=== PATIENT | male | born 1995 | race Caucasian/White ===

== ENCOUNTER 2020-12-05 15:13 | Emergency (ER) | payer SELFPAY ==
[~2020-12-05 15:13] MED LIST: LODINE CAP 300300 MG PO; POLYSPORIN OP3.5 GM TOP
[2020-12-05] MEDS ORDERED: IBU600 MG PO (17:34)
[2020-12-05] MEDS ORDERED: ROBAXIN-750750 MG PO (17:34)
== END 2020-12-05 17:55 | disposition home or self-care (01) ==
LOC: ER1 15:13
DX: M54.5 Low back pain (principal); F17.210 Nicotine dependence, cigarettes, uncomplicated
CPT/HCPCS: 81001; 96372; 99283; J1885; J2360

== ENCOUNTER 2021-02-23 17:09 | Emergency (ER) | payer SELFPAY ==
[~2021-02-23 17:09] MED LIST changes: +IBU600 MG PO; +ROBAXIN-750750 MG PO
[2021-02-23] MEDS ORDERED: LODINE CAP 300300 MG PO (18:36)
[2021-02-23] MEDS ORDERED: ZOFRAN ODT 4 MG4 MG PO (18:36)
[2021-02-23] MEDS ORDERED: HYDROCODON-ACE1 EAC4 PO (18:41)
== END 2021-02-23 18:50 | disposition home or self-care (01) ==
LOC: ER1 17:09
DX: S62.316A Displaced fracture of base of fifth metacarpal bone, right hand, initial encounter for closed fracture (principal); S60.221A Contusion of right hand, initial encounter; F17.210 Nicotine dependence, cigarettes, uncomplicated; W22.8XXA Striking against or struck by other objects, initial encounter
CPT/HCPCS: 29125; 73130; 99283

== ENCOUNTER 2021-08-11 10:20 | Emergency (ER) | payer SELFPAY ==
[~2021-08-11 10:20] MED LIST changes: +HYDROCODON-ACE1 EAC4 PO; +ZOFRAN ODT 4 MG4 MG PO
[2021-08-11 12:16] LABS: HEMOGLOBIN 15.3 gm/dl (14.0-17.5); RED BLOOD COUNT 4.92 M/UL (4.20-5.50)
[2021-08-11 12:39] LABS: BUN/CREATININE RATIO 10 (0-10)
[2021-08-11] MEDS ORDERED: CYCLOBENZAPRINE10 MG PO (14:44)
[2021-08-11] MEDS ORDERED: NAPROSYN500 MG PO (14:44)
== END 2021-08-11 14:50 | disposition home or self-care (01) ==
LOC: ER1 10:20
PROVIDERS: Physician Assistant
DX: S20.211A Contusion of right front wall of thorax, initial encounter (principal); F17.200 Nicotine dependence, unspecified, uncomplicated; V86.99XA Unspecified occupant of other special all-terrain or other off-road motor vehicle injured in nontraffic accident, initial encounter
CPT/HCPCS: 71260; 80053; 85025; 99284; J7030; Q9967

== ENCOUNTER 2022-03-03 12:16 | Emergency (ER) | payer SELFPAY ==
[~2022-03-03 12:16] MED LIST changes: +CYCLOBENZAPRINE10 MG PO; +NAPROSYN500 MG PO
[2022-03-03 12:52] LABS: HEMOGLOBIN 14.5 gm/dl (14.0-17.5); RED BLOOD COUNT 4.5 M/UL (4.20-5.50); WHITE BLOOD COUNT 17.9 K/UL (4.5-11.0)
[2022-03-03 13:08] LABS: BUN/CREATININE RATIO 12 (0-10)
== END 2022-03-04 06:46 | disposition home or self-care (01) ==
LOC: ER1 12:16
PROVIDERS: Physician Assistant; Physician Assistant Medical
DX: L55.0 Sunburn of first degree (principal); R44.3 Hallucinations, unspecified
CPT/HCPCS: 70360; 71045; 80053; 80307; 81001; 82550; 82553; 83874; 84484; 85025; 99285; G0480

== ENCOUNTER 2022-03-28 17:17 | Emergency (ER) | payer SELFPAY ==
[2022-03-28] MEDS ORDERED: FLOXIN 0.3% OTIC5 ML EARLF (20:12)
== END 2022-03-28 20:25 | disposition home or self-care (01) ==
LOC: ER1 17:17
DX: H60.92 Unspecified otitis externa, left ear (principal); H60.332 Swimmer's ear, left ear; F17.210 Nicotine dependence, cigarettes, uncomplicated
CPT/HCPCS: 99282

== ENCOUNTER 2022-04-01 19:18 | Emergency (ER) | payer SELFPAY ==
[~2022-04-01 19:18] MED LIST changes: +FLOXIN 0.3% OTIC5 ML EARLF
[2022-04-01 22:32] LABS: RED BLOOD COUNT 4.65 M/UL (4.20-5.50); WHITE BLOOD COUNT 8.8 K/UL (4.5-11.0)
[2022-04-01 23:17] LABS: BUN/CREATININE RATIO 18 (0-10)
[2022-04-02] MEDS ORDERED: AMOXICILLIN500 M1 PO (00:59)
== END 2022-04-02 01:10 | disposition home or self-care (01) ==
LOC: ER1 19:18
PROVIDERS: Physician Assistant
DX: I88.9 Nonspecific lymphadenitis, unspecified (principal); G89.29 Other chronic pain; K02.9 Dental caries, unspecified; F17.200 Nicotine dependence, unspecified, uncomplicated
CPT/HCPCS: 80053; 85025; 86403; 87081; 87880; 99283

== ENCOUNTER 2022-04-03 08:16 | Emergency (ER) | payer SELFPAY ==
[~2022-04-03 08:16] MED LIST changes: +AMOXICILLIN500 M1 PO
== END 2022-04-03 10:53 | disposition home or self-care (01) ==
LOC: ER1 08:16
DX: R22.1 Localized swelling, mass and lump, neck (principal); F17.210 Nicotine dependence, cigarettes, uncomplicated
CPT/HCPCS: 70360; 99283

== ENCOUNTER 2022-04-03 13:09 | Emergency (ER) | payer SELFPAY | END 2022-04-03 17:01 | disposition left against medical advice (07) | LOC: ER1 13:09 | DX: T17.1XXA Foreign body in nostril, initial encounter (principal); F17.210 Nicotine dependence, cigarettes, uncomplicated | CPT/HCPCS: 99281 ==

== ENCOUNTER 2022-04-10 11:58 | Emergency (ER) | payer SELFPAY | END 2022-04-10 12:50 | disposition home or self-care (01) | LOC: ER1 11:58 | DX: S16.1XXA Strain of muscle, fascia and tendon at neck level, initial encounter (principal); F12.10 Cannabis abuse, uncomplicated; F17.210 Nicotine dependence, cigarettes, uncomplicated; W19.XXXA Unspecified fall, initial encounter | CPT/HCPCS: 99283 ==

== ENCOUNTER 2022-04-11 15:16 | Emergency (ER) | payer SELFPAY | END 2022-04-11 17:35 | disposition home or self-care (01) | LOC: ER1 15:16 | DX: R22.1 Localized swelling, mass and lump, neck (principal) | CPT/HCPCS: 99283 ==

== ENCOUNTER 2022-05-18 07:52 | Emergency (ER) | payer OTHER | END 2022-05-18 10:19 | disposition home or self-care (01) | LOC: ER1 07:52 | DX: S01.81XA Laceration without foreign body of other part of head, initial encounter (principal); S80.11XA Contusion of right lower leg, initial encounter; S80.02XA Contusion of left knee, initial encounter; F17.200 Nicotine dependence, unspecified, uncomplicated; M54.2 Cervicalgia; V49.9XXA Car occupant (driver) (passenger) injured in unspecified traffic accident, initial encounter; Y92.410 Unspecified street and highway as the place of occurrence of the external cause | CPT/HCPCS: 70450; 71045; 72125; 72170; 73562; 81001; 90471; 90715; 99284 ==